=== PATIENT | male | born 2000 | race Two or more races ===

== ENCOUNTER 2024-01-10 17:47 | Emergency (ER) | payer BC ==
[~2024-01-10] VITALS: Ht 180.3 cm; Wt 79.4 kg
[2024-01-11] MEDS ORDERED: AZIT250T PO (00:32)
[2024-01-11] MEDS ORDERED: ALBU8.5H8 IH (00:32)
[2024-01-11 00:40] VITALS: BP 167/94; TEMP 98.6; O2SAT 100
== END 2024-01-11 00:40 | disposition home or self-care (01) ==
LOC: ER 18:18
DX: J40 Bronchitis, not specified as acute or chronic (principal); R11.0 Nausea; Z88.8 Allergy status to other drugs, medicaments and biological substances; Z20.822 Contact with and (suspected) exposure to COVID-19
CPT/HCPCS: 71045-TC